=== PATIENT | male | born 1995 | race Caucasian/White ===

== ENCOUNTER 2017-12-06 20:58 | Emergency (ER) | payer MEDICAID ==
[~2017-12-06] VITALS: Ht 188 cm; Wt 78.2 kg
[2017-12-06 21:00] VITALS: Ht 188 cm; Wt 78.2 kg
[2017-12-06 21:29] LABS: BASOPHILS 0.2 % (0-2); EOSINOPHILS 1.8 % (0-7); HEMATOCRIT 45.8 % (42.0-54.0); HEMOGLOBIN 15.4 g/dL (13.5-17.5); IMMATURE GRANULOCYTES 0.3 % (0-5); LYMPHOCYTES 27.8 % (15-50); MCH 31.6 pg (26.0-34.0); MCHC 33.6 g/dL (31.0-37.0); MEAN PLATELET VOLUME 9.3 fL (7.4-10.4); MONOCYTES 11.2 % (2-11); NEUTROPHILS 58.7 % (40-80); PLATELET COUNT 188 10x3/uL (130-400); RBC 4.87 10x6/uL (4.20-6.10); RDW 13.4 % (11.5-14.5); WBC 8.7 10x3/uL (4.8-10.8)
[2017-12-06 21:47] LABS: APPEARANCE CLEAR (CLEAR); BILIRUBIN NEGATIVE (NEGATIVE); COLOR YELLOW (YELLOW); GLUCOSE NEGATIVE (NEGATIVE); KETONE NEGATIVE (NEGATIVE); NITRITE NEGATIVE (NEGATIVE); PROTEIN NEGATIVE (NEGATIVE); SPECIFIC GRAVITY 1.025 (1.005-1.020); UROBILINOGEN NORMAL (NORMAL)
[2017-12-06 21:48] LABS: AMORPHOUS SEDIMENT <1+ /lpf (NONE SEEN); BACTERIA MODERATE /hpf (NONE SEEN); EPITHELIAL CELLS OCC /hpf (0-5); MUCUS >1+ /lpf (NONE SEEN); WHITE CELLS - URINE 0-5 /hpf (0-5)
[2017-12-06 21:55] LABS: ALBUMIN 3.8 g/dL (3.4-5.0); ALKALINE PHOSPHATASE 50 U/L (46-116); ALT (SGPT) 23 U/L (10-68); AMYLASE - SERUM 85 U/L (25-115); BILIRUBIN - TOTAL 0.28 mg/dL (0.2-1.3); CALCIUM 8.7 mg/dL (8.5-10.1); CARBON DIOXIDE 29.1 mmol/L (21.0-32.0); CHLORIDE - SERUM 104 mmol/L (98-107); LIPASE 133 U/L (73-393); POTASSIUM - SERUM 3.5 mmol/L (3.5-5.1); PROTEIN - SERUM 7.1 g/dL (6.4-8.2); SODIUM 143 mmol/L (136-145); UREA NITROGEN 13 mg/dL (7-18); eGFR NON AFRICAN AMERICAN > 90 mL/min (90-120)
[2017-12-06 21:59] VITALS: BP 159/81
[2017-12-06 21:59] LABS: CALC OSMOLALITY 282 mosm/kg (275-300); TROPONIN-I < 0.017 ng/mL (0.000-0.060)
[2017-12-06 22:02] LABS: GLUCOSE 61 mg/dL (74-106)
[2017-12-06] MEDS ORDERED: TORADOL10 MG PO (23:35)
== END 2017-12-06 22:03 | disposition home or self-care (01) ==
LOC: D.ER 20:58
PROVIDERS: Family Medicine
DX: R31.9 Hematuria, unspecified (principal); R10.9 Unspecified abdominal pain; M54.5 Low back pain; F17.200 Nicotine dependence, unspecified, uncomplicated

== ENCOUNTER 2018-02-18 20:22 | Emergency (ER) | payer SELFPAY ==
[~2018-02-18] VITALS: Ht 188 cm; Wt 77.3 kg
[~2018-02-18 20:22] MED LIST: TORADOL10 MG PO
[2018-02-18 20:38] VITALS: Ht 188 cm; Wt 77.3 kg
[2018-02-18] MEDS ORDERED: TORADOL10 MG PO (21:27)
[2018-02-18 21:59] VITALS: BP 151/92
== END 2018-02-18 21:59 | disposition home or self-care (01) ==
LOC: D.ER 20:22
DX: S50.02XA Contusion of left elbow, initial encounter (principal); X58.XXXA Exposure to other specified factors, initial encounter; Y93.89 Activity, other specified; Y92.019 Unspecified place in single-family (private) house as the place of occurrence of the external cause

== ENCOUNTER 2018-09-19 12:55 | Emergency (ER) | payer SELFPAY ==
[~2018-09-19] VITALS: Ht 188 cm; Wt 77.3 kg
[2018-09-19 12:59] VITALS: Ht 188 cm; Wt 77.3 kg
[2018-09-19 13:35] LABS: BASOPHILS 0.2 % (0-2); EOSINOPHILS 3.5 % (0-7); HEMATOCRIT 39.2 % (42.0-54.0); HEMOGLOBIN 13.5 g/dL (13.5-17.5); IMMATURE GRANULOCYTES 0.9 % (0-5); MCH 31.5 pg (26.0-34.0); MCHC 34.4 g/dL (31.0-37.0); MCV 91.4 fL (80.0-100.0); MEAN PLATELET VOLUME 9.9 fL (7.4-10.4); MONOCYTES 8.7 % (2-11); NEUTROPHILS 57.7 % (40-80); PLATELET COUNT 222 10x3/uL (130-400); RBC 4.29 10x6/uL (4.20-6.10); RDW 13.7 % (11.5-14.5)
[2018-09-19 13:49] LABS: ALBUMIN 3.8 g/dL (3.4-5.0); ALKALINE PHOSPHATASE 64 U/L (46-116); ALT (SGPT) 88 U/L (10-68); BILIRUBIN - TOTAL 0.16 mg/dL (0.2-1.3); CALC OSMOLALITY 277 mosm/kg (275-300); CALCIUM 9.1 mg/dL (8.5-10.1); CARBON DIOXIDE 29.7 mmol/L (21.0-32.0); CHLORIDE - SERUM 103 mmol/L (98-107); GLUCOSE 75 mg/dL (74-106); POTASSIUM - SERUM 4.1 mmol/L (3.5-5.1); PROTEIN - SERUM 6.8 g/dL (6.4-8.2); SODIUM 140 mmol/L (136-145); UREA NITROGEN 13 mg/dL (7-18); eGFR NON AFRICAN AMERICAN > 90 mL/min (90-120)
[2018-09-19] MEDS ORDERED: PREDNISONE20 MG PO (14:17)
[2018-09-19 14:32] VITALS: BP 118/78
== END 2018-09-19 14:33 | disposition home or self-care (01) ==
LOC: D.ER 12:55
PROVIDERS: Family Medicine
DX: T63.461A Toxic effect of venom of wasps, accidental (unintentional), initial encounter (principal); Y92.89 Other specified places as the place of occurrence of the external cause

== ENCOUNTER 2019-12-02 20:14 | Emergency (ER) | payer MEDICAID ==
[2018-09-19 12:59] VITALS: BMI 21.8
[~2019-12-02 20:14] MED LIST changes: +PREDNISONE20 MG PO
== END 2019-12-02 21:49 | disposition left against medical advice (07) ==
LOC: D.ER 20:14
DX: R52 Pain, unspecified (principal)